=== PATIENT | male | born 1960 | race African-American/Black ===

== ENCOUNTER → 2018-07-22 | Outpatient (CLI) | payer OTHER ==
[2018-07-22 16:48] LABS: BASO % 0.6 % (0.0-1.0); EOS # 0.2 10^3/uL (0.0-0.50); EOS % 3.2 % (0.0-3.0); HEMATOCRIT 49.7 % (42.0-52.0); LYMPH # 3.1 10^3/uL (1.5-4.5); LYMPH % 57.6 % (24.0-44.0); MEAN CORPUSCULAR HEMOGLOBIN 27.1 pg (27.0-33.0); MEAN CORPUSCULAR HGB CONC 32.2 g/dl (32.0-36.5); MEAN CORPUSCULAR VOLUME 84.2 fl (80.0-96.0); MONO # 0.4 10^3/uL (0.0-0.8); MONO % 7.3 % (0.0-5.0); NEUTROPHILS # 1.7 10^3/uL (1.8-7.7); NEUTROPHILS % 31.1 % (36.0-66.0); PLATELET COUNT, AUTOMATED 283 10^3/uL (150-450); WHITE BLOOD COUNT 5.4 10^3/uL (4.0-10.0)
[2018-07-22 17:44] LABS: ALBUMIN 4.2 GM/DL (3.2-5.2); ALT/SGPT 105 U/L (12-78); AMYLASE 497 U/L (25-115); BILIRUBIN,DIRECT 0.1 MG/DL (0.0-0.2); BILIRUBIN,TOTAL 0.3 MG/DL (0.2-1.0); BLOOD UREA NITROGEN 15 MG/DL (7-18); CALCIUM LEVEL 9.5 MG/DL (8.8-10.2); CARBON DIOXIDE LEVEL 29 MEQ/L (21-32); CHLORIDE LEVEL 105 MEQ/L (98-107); CREATININE FOR GFR 1.22 MG/DL (0.70-1.30); GAMMA GLUTAMYLTRANSPEPTIDASE 135 U/L (15-85); GLOMERULAR FILTRATION RATE > 60.0 (>49); GLUCOSE, FASTING 152 MG/DL (70-100); LIPASE 2544 U/L (73-393); PHOSPHORUS LEVEL 2.8 MG/DL (2.5-4.9); POTASSIUM SERUM 4.4 MEQ/L (3.5-5.1); SODIUM LEVEL 140 MEQ/L (136-145); THYROID STIMULATING HORMONE 0.974 uIU/ML (0.358-3.740); TOTAL PROTEIN 8.6 GM/DL (6.4-8.2)
[2018-07-24 11:24] LABS: HEPATITIS B SURFACE ANTIGEN NEGATIVE (NEGATIVE)
[2018-07-24 11:52] LABS: HEPATITIS B CORE ANTIBODY IGM NEGATIVE (NEGATIVE)
[2018-07-24 11:54] LABS: HEPATITIS A ANTIBODY IGM NEGATIVE (NEGATIVE)
[2018-07-24 13:42] LABS: HEPATITIS C VIRUS ABY INDEX > 11.0 INDEX (<0.8)
[2018-07-24 14:21] LABS: FREE T4 1.25 NG/DL (0.76-1.46)
== END ==
LOC: M WUC 11:09
PROVIDERS: ATTEND Physician Assistant
DX: R10.11 Right upper quadrant pain (principal)

== ENCOUNTER → 2021-12-17 | Outpatient (CLI) | payer OTHER | LOC: M PLALAB 10:31 | PROVIDERS: ATTEND Internal Medicine Infectious Disease | DX: B18.2 Chronic viral hepatitis C (principal) ==

== ENCOUNTER → 2022-08-05 | Outpatient (CLI) | payer OTHER ==
[~2022-08-05] MED LIST: AMLO1TAB24; ISOVUE-300 61% 50ML VIAL As Ordered ONE; LATA0.0015; LIDOCAINE 1% MDV 20ML VIAL As Ordered ONE; LISI5TAB11; METF-838; TAMS1CAP17; TIMO0.5S29; methylPREDNISolone SUSP 40MG/ML 1ML VIAL (DEPO MEDROL) As Ordered ONE
== END ==
LOC: M RAD 13:07
PROVIDERS: ATTEND Physician Assistant
DX: M19.121 Post-traumatic osteoarthritis, right elbow (principal)
CPT/HCPCS: 20605; 76000; J1030

== ENCOUNTER → 2022-09-04 | Outpatient (CLI) | payer OTHER ==
[~2022-09-04] MED LIST changes: -ISOVUE-300 61% 50ML VIAL As Ordered ONE; -LIDOCAINE 1% MDV 20ML VIAL As Ordered ONE; -methylPREDNISolone SUSP 40MG/ML 1ML VIAL (DEPO MEDROL) As Ordered ONE
== END ==
LOC: M RAD 14:39
PROVIDERS: ATTEND Physical Medicine & Rehabilitation
DX: G56.21 Lesion of ulnar nerve, right upper limb (principal)

== ENCOUNTER → 2022-11-24 | Outpatient (CLI) | payer OTHER ==
[~2022-11-24] MED LIST changes: +ISOVUE-300 61% 100ML VIAL ONE; +LIDOCAINE 1% MDV 20ML VIAL ONE; +TIMO0.5S20; -TIMO0.5S29; +methylPREDNISolone SUSP 40MG/ML 1ML VIAL (DEPO MEDROL) ONE
== END ==
LOC: M PLAIMG 14:54
PROVIDERS: ATTEND Physician Assistant
DX: G56.21 Lesion of ulnar nerve, right upper limb (principal)
CPT/HCPCS: 20610; 77002; J1030; Q9967

== ENCOUNTER → 2023-02-18 | Outpatient (CLI) | payer OTHER ==
[~2023-02-18] MED LIST changes: -ISOVUE-300 61% 100ML VIAL ONE; -LIDOCAINE 1% MDV 20ML VIAL ONE; -methylPREDNISolone SUSP 40MG/ML 1ML VIAL (DEPO MEDROL) ONE
== END ==
LOC: M PAIN 13:00
PROVIDERS: ATTEND Nurse Practitioner Family
DX: M79.12 Myalgia of auxiliary muscles, head and neck (principal); B18.2 Chronic viral hepatitis C; E10.9 Type 1 diabetes mellitus without complications; Z79.84 Long term (current) use of oral hypoglycemic drugs; Z79.899 Other long term (current) drug therapy; Z87.891 Personal history of nicotine dependence; Z88.6 Allergy status to analgesic agent

== ENCOUNTER → 2023-05-11 | Outpatient (CLI) | payer OTHER ==
[~2023-05-11] MED LIST changes: +LATANOPROST; +LIDOCAINE 1% MDV 20ML VIAL As Ordered ONE; +ROPIvacaine 0.5% 30ML VIAL As Ordered ONE; +TRIAMCINOLONE ACETONIDE SUSP 40MG/ML 1ML VIAL As Ordered ONE
== END ==
LOC: M IRPRO 14:57
PROVIDERS: ATTEND Orthopaedic Surgery
DX: M19.011 Primary osteoarthritis, right shoulder (principal)
CPT/HCPCS: 20550; 76942; J2795; J3301